=== PATIENT | male | born 1945 | race Caucasian/White ===

== ENCOUNTER 2018-08-03 09:44 | Inpatient (IN) | payer MEDICARE, OTHER ==
[~2018-08-03] VITALS: Ht 172.7 cm; Wt 86.4 kg
[~2018-08-03 09:44] MED LIST: NO HOME MEDS
[2018-08-03] MEDS ORDERED: LORazepam 2 mg/ml vial IV ONE (10:00)
[2018-08-03] MEDS ORDERED: ondansetron/PF 4mg/2ml inj IV ONE (10:00)
[2018-08-03] MEDS ORDERED: morphine 4 MG/ML inj SYRINge IV ONE (10:00)
[2018-08-03 10:22] LABS: MEAN CORPUSCULAR HEMOGLOBIN 32.1 PG (27.0-31.0)
[2018-08-03 10:28] LABS: INR 1.1 INR; PROTHROMBIN TIME 11.1 SECONDS (9.0-12.0)
[2018-08-03 10:33] LABS: ALANINE AMINOTRANSFERASE 36 U/L (12-78); ALBUMIN 4.6 G/DL (3.4-5.0); ALBUMIN/GLOBULIN RATIO 1.3 (1.1-1.5); ALKALINE PHOSPHATASE 100 IU/L (46-116); ANION GAP 17 (8-16); ASPARTATE AMINO TRANSFERASE 41 U/L (10-37); BILIRUBIN,TOTAL 2.3 MG/DL (0.1-1.0); BLOOD UREA NITROGEN 17 MG/DL (7-18); BUN/CREATININE RATIO 16.3 (5.4-32.0); CALCIUM 9.6 MG/DL (8.5-10.1); CHLORIDE 101 MMOL/L (99-107); CREATININE 1.04 MG/DL (0.60-1.10); GLUCOSE 105 MG/DL (70-104); POTASSIUM 4.1 MMOL/L (3.5-5.1); SODIUM 137 MMOL/L (135-145); TOTAL CARBON DIOXIDE 19.4 MMOL/L (24-32); TOTAL PROTEIN 8.1 G/DL (6.4-8.2); eGFR 70 ML/MIN
[2018-08-03 10:44] LABS: BASOPHILS % (AUTO) 0.1 % (0-1); MEAN PLATELET VOLUME 9.4 FL (7.4-10.4)
[2018-08-03 10:45] LABS: HEMATOCRIT 45.9 % (42.0-52.0); HEMOGLOBIN 15.9 g/dl (14.0-17.9); LYMPHOCYTES % (AUTO) 6.2 % (21-51); MEAN CORPUSCULAR HGB CONC 34.5 % (33.0-36.5); NEUTROPHILS % (AUTO) 88.1 % (42-75); RED BLOOD COUNT 4.94 X10'6 (4.70-6.10); WHITE BLOOD COUNT 15.9 X10'3 (4.5-11.0)
[2018-08-03 10:46] LABS: EOSINOPHILS % (AUTO) 0 % (0-6); MONOCYTES # (AUTO) 0.9 X10'3 (0-0.9); MONOCYTES % (AUTO) 5.6 % (2-12)
[2018-08-03 10:47] LABS: RED CELL DISTRIBUTION WIDTH 13.3 % (11.5-14.5)
[2018-08-03] MEDS ORDERED: HYDROmorphone 1 mg/ml syringe IV ONE (10:50)
[2018-08-03 10:51] LABS: PLATELET COUNT 138 X10'3 (140-440)
[2018-08-03] MEDS: normal saline 1000ml 1,000 ML IV SCH ×4 (11:09→23:11)
[2018-08-03] MEDS ORDERED: HYDROmorphone inj. 0.5 MG/0.5 ML DISP.SYRIN IV PRN ×2 (11:20)
[2018-08-03] MEDS ORDERED: ondansetron/PF 4mg/2ml inj IV PRN (11:20)
[2018-08-03] MEDS ORDERED: magnesium 1gm/100ml D5W IVPB 100 ML IV PRN (11:20)
[2018-08-03] MEDS ORDERED: magnesium Cl slow-release 64mg tablet PO PRN (11:20)
[2018-08-03] MEDS ORDERED: metoclopramide 5 mg/ml inj IV PRN (11:20)
[2018-08-03] MEDS ORDERED: potassium Cl 20 mEq SR tablet PO PRN ×2 (11:20)
[2018-08-03] MEDS ORDERED: acetaminophen 325mg tablet PO PRN (11:20)
[2018-08-03] MEDS ORDERED: potassium Cl 40MEQ/NS 500ml 500 ML IV PRN ×2 (11:20)
[2018-08-03] MEDS ORDERED: magnesium 4gm in 100ml NS 100 ML IV PRN (11:20)
[2018-08-03] MEDS ORDERED: ATOR20TA PO (12:13)
[2018-08-03] MEDS ORDERED: CYAN100087 PO (12:14)
[2018-08-03 13:56] LABS: CLARITY,URINE CLEAR (Clear); COLOR,URINE YELLOW (Yellow); GLUCOSE, URINE NEGATIVE (Neg); KETONES,URINE 40 mg/dl (Neg); LEUKOCYTE ESTERASE ,URINE NEGATIVE (Neg); NITRITES, URINE NEGATIVE (Neg); OCCULT BLOOD,URINE MODERATE (Neg); PH,URINE 5.5 (4.8-8.0); PROTEIN,URINE NEGATIVE (Neg); UROBILINOGEN,URINE 0.2 E.U/dL (0.2-1.0)
[2018-08-03 13:57] LABS: UA COLLECTION TYPE CLN CATCH MIDSTREAM
[2018-08-03 14:05] LABS: BACTERIA,URINE NONE SEEN /HPF (Neg); RBC,URINE 0-2 /HPF (0-2); SQUAMOUS EPITHELIAL CELL,UR NONE SEEN /LPF (FEW); WBC,URINE 0-4 /HPF (0-4)
[2018-08-03 16:02] VITALS: BP 120/73
[2018-08-03] MEDS ORDERED: HYDROmorphone 1 mg/ml syringe ONE ×2 (16:10→20:02)
[2018-08-03] MEDS: famotidine 20mg tablet PO SCH (20:03)
[2018-08-03] MEDS: docusate sod 100mg capsule PO SCH (20:03)
[2018-08-03] MEDS ORDERED: HYDROmorphone 1 mg/ml syringe IV PRN (20:10)
[2018-08-03] MEDS: HYDROmorphone 1 mg/ml syringe IV PRN (20:16)
[2018-08-03 22:00] VITALS: BP 121/73
[2018-08-04] VITALS (18 sets, daily range): BP systolic 114–153; BP diastolic 67–96
[2018-08-04] MEDS: HYDROmorphone 1 mg/ml syringe IV PRN ×5 (00:22→20:21)
[2018-08-04 06:15] LABS: ALBUMIN 3.3 G/DL (3.4-5.0); ANION GAP 6 (8-16); BLOOD UREA NITROGEN 16 MG/DL (7-18); BUN/CREATININE RATIO 17.8 (5.4-32.0); CALCIUM 8.3 MG/DL (8.5-10.1); CHLORIDE 104 MMOL/L (99-107); GLUCOSE 115 MG/DL (70-104); MAGNESIUM 1.9 MG/DL (1.5-2.4); POTASSIUM 3.7 MMOL/L (3.5-5.1); SODIUM 135 MMOL/L (135-145); TOTAL CARBON DIOXIDE 24.8 MMOL/L (24-32); eGFR 83 ML/MIN
[2018-08-04 06:39] LABS: BASOPHILS % (AUTO) 0.3 % (0-1); EOSINOPHILS # (AUTO) 0.1 X10'3 (0-0.9); EOSINOPHILS % (AUTO) 0.8 % (0-6); HEMATOCRIT 37.8 % (42.0-52.0); HEMOGLOBIN 13.4 g/dl (14.0-17.9); LYMPHOCYTES # (AUTO) 1.7 X10'3 (1.1-4.8); LYMPHOCYTES % (AUTO) 14.5 % (21-51); MEAN CORPUSCULAR HEMOGLOBIN 33.4 PG (27.0-31.0); MEAN CORPUSCULAR HGB CONC 35.4 % (33.0-36.5); MEAN CORPUSCULAR VOLUME 94.3 FL (78-98); MEAN PLATELET VOLUME 9.9 FL (7.4-10.4); MONOCYTES % (AUTO) 8.7 % (2-12); NEUTROPHILS # (AUTO) 8.8 X10'3 (1.8-7.7); NEUTROPHILS % (AUTO) 75.7 % (42-75); RED BLOOD COUNT 4.01 X10'6 (4.70-6.10); RED CELL DISTRIBUTION WIDTH 12.5 % (11.5-14.5); WHITE BLOOD COUNT 11.6 X10'3 (4.5-11.0)
[2018-08-04] MEDS: K and/or MAG REPLACEMENT MC SCH (07:00)
[2018-08-04 07:10] LABS: PLATELET COUNT 122 X10'3 (140-440); PLATELET ESTIMATE DECREASED
[2018-08-04] MEDS: docusate sod 100mg capsule PO SCH ×2 (07:18→20:00)
[2018-08-04] MEDS ORDERED: ceFAZolin 1GM/D5W- ADD-VANTAGE 50 ML IV ONE (07:30)
[2018-08-04] MEDS ORDERED: fentaNYL/PF 50MCG/1 ML 2ML syringe ONE (17:02)
[2018-08-04] MEDS ORDERED: midazolam 2 mg/2 ml injection ONE (17:03)
[2018-08-04] MEDS ORDERED: BUPIVAcaine/PF 7.5mg/ml (0.75%) 10ml vial ONE (17:04)
[2018-08-04] MEDS ORDERED: propofol inj 20 ML IV ONE (18:00)
[2018-08-04] MEDS ORDERED: LIDOcaine 1%/PF 5ML 10 MG/ML VIAL ONE (18:00)
[2018-08-04] MEDS ORDERED: diphenhydrAMINE 50 mg/ml inj ONE (18:00)
[2018-08-04] MEDS ORDERED: normal saline 1000ml 1,000 ML IV ONE (18:03)
[2018-08-04] MEDS ORDERED: ondansetron/PF 4mg/2ml inj IV PRN (18:05)
[2018-08-04] MEDS ORDERED: HYDROmorphone 1 mg/ml syringe IV PRN (18:05)
[2018-08-04] MEDS ORDERED: morphine 4 MG/ML inj SYRINge IV PRN (18:05)
[2018-08-04] MEDS ORDERED: acetaminophen 325mg tablet PO PRN (18:50)
[2018-08-04] MEDS ORDERED: diphenhydrAMINE 25mg capsule PO PRN ×2 (18:50)
[2018-08-04] MEDS ORDERED: bisacodyl 10mg suppository rectal RC PRN (18:50)
[2018-08-04] MEDS ORDERED: magnesium hydroxide 30ml (MOM) UD suspension PO PRN (18:50)
[2018-08-04] MEDS: famotidine 20mg tablet PO SCH (20:16)
[2018-08-04] MEDS: sennosides 8.6mg tablet PO SCH (20:20)
[2018-08-04] MEDS: HYDROcodone/acetaminophen 10/325mg tab PO PRN (21:44)
[2018-08-05] MEDS: HYDROmorphone 1 mg/ml syringe IV PRN (00:29)
[2018-08-05] MEDS: ceFAZolin 1GM/D5W- ADD-VANTAGE 50 ML IV SCH ×2 (00:29→08:21)
[2018-08-05 02:00] VITALS: BP 146/82
[2018-08-05] MEDS: HYDROcodone/acetaminophen 10/325mg tab PO PRN ×5 (02:20→21:01)
[2018-08-05 05:00] VITALS: BP 126/81
[2018-08-05 05:56] LABS: ANION GAP 7 (8-16); CHLORIDE 105 MMOL/L (99-107); CHOL/HDL RATIO 2.3 (0.00-4.99); CHOLESTEROL 103 MG/DL (0-200); CREATININE 0.78 MG/DL (0.60-1.10); GLUCOSE 105 MG/DL (70-104); HDL CHOLESTEROL 45 MG/DL (35-60); LDL CHOLESTEROL 52 MG/DL (50-100); MAGNESIUM 1.9 MG/DL (1.5-2.4); POTASSIUM 3.8 MMOL/L (3.5-5.1); SODIUM 136 MMOL/L (135-145); TOTAL CARBON DIOXIDE 24.2 MMOL/L (24-32); TRIGLYCERIDES 69 MG/DL (20-135); eGFR > 90 ML/MIN
[2018-08-05 06:19] LABS: BLOOD UREA NITROGEN 10 MG/DL (7-18); BUN/CREATININE RATIO 12.8 (5.4-32.0)
[2018-08-05 06:35] LABS: BASOPHILS % (AUTO) 0.2 % (0-1); EOSINOPHILS # (AUTO) 0.2 X10'3 (0-0.9); EOSINOPHILS % (AUTO) 1.7 % (0-6); HEMATOCRIT 35.7 % (42.0-52.0); HEMOGLOBIN 12.4 g/dl (14.0-17.9); LYMPHOCYTES # (AUTO) 1.3 X10'3 (1.1-4.8); MEAN CORPUSCULAR HEMOGLOBIN 32.4 PG (27.0-31.0); MEAN CORPUSCULAR HGB CONC 34.7 % (33.0-36.5); MEAN CORPUSCULAR VOLUME 93.6 FL (78-98); MEAN PLATELET VOLUME 8.5 FL (7.4-10.4); MONOCYTES # (AUTO) 1.1 X10'3 (0-0.9); MONOCYTES % (AUTO) 10.6 % (2-12); NEUTROPHILS # (AUTO) 7.6 X10'3 (1.8-7.7); NEUTROPHILS % (AUTO) 74.5 % (42-75); PLATELET COUNT 127 X10'3 (140-440); RED BLOOD COUNT 3.82 X10'6 (4.70-6.10); RED CELL DISTRIBUTION WIDTH 13.1 % (11.5-14.5); WHITE BLOOD COUNT 10.2 X10'3 (4.5-11.0)
[2018-08-05] MEDS: K and/or MAG REPLACEMENT MC SCH (08:00)
[2018-08-05] MEDS: docusate sod 100mg capsule PO SCH ×2 (08:21→20:18)
[2018-08-05] MEDS: atorvastatin 20mg tablet PO SCH (08:21)
[2018-08-05] MEDS: cyanocobalamin 500mcg tablet PO SCH (08:21)
[2018-08-05] MEDS: enoxaparin 40mg/0.4ml syringe SQ SCH (08:22)
[2018-08-05] MEDS: normal saline 1000ml 1,000 ML IV SCH (08:31)
[2018-08-05 12:00] VITALS: BP 125/77
[2018-08-05 18:00] VITALS: BP 149/86
[2018-08-05] MEDS: sennosides 8.6mg tablet PO SCH (20:18)
[2018-08-05] MEDS: famotidine 20mg tablet PO SCH (20:18)
[2018-08-05 22:00] VITALS: BP 137/70
[2018-08-06 02:00] VITALS: BP 135/88
[2018-08-06] MEDS: HYDROcodone/acetaminophen 10/325mg tab PO PRN ×3 (02:15→18:41)
[2018-08-06 05:14] LABS: ALBUMIN 2.8 G/DL (3.4-5.0); ANION GAP 6 (8-16); BLOOD UREA NITROGEN 8 MG/DL (7-18); CALCIUM 8.1 MG/DL (8.5-10.1); CHLORIDE 103 MMOL/L (99-107); GLUCOSE 111 MG/DL (70-104); MAGNESIUM 1.8 MG/DL (1.5-2.4); POTASSIUM 3.5 MMOL/L (3.5-5.1); SODIUM 136 MMOL/L (135-145); eGFR > 90 ML/MIN
[2018-08-06 05:15] LABS: BASOPHILS % (AUTO) 0.4 % (0-1); EOSINOPHILS # (AUTO) 0.2 X10'3 (0-0.9); EOSINOPHILS % (AUTO) 1.7 % (0-6); HEMOGLOBIN 12.3 g/dl (14.0-17.9); LYMPHOCYTES # (AUTO) 1.2 X10'3 (1.1-4.8); LYMPHOCYTES % (AUTO) 10.9 % (21-51); MEAN CORPUSCULAR HEMOGLOBIN 32.9 PG (27.0-31.0); MEAN CORPUSCULAR HGB CONC 35.2 % (33.0-36.5); MEAN CORPUSCULAR VOLUME 93.7 FL (78-98); MEAN PLATELET VOLUME 9.8 FL (7.4-10.4); MONOCYTES # (AUTO) 1.2 X10'3 (0-0.9); MONOCYTES % (AUTO) 10.9 % (2-12); NEUTROPHILS # (AUTO) 8.1 X10'3 (1.8-7.7); NEUTROPHILS % (AUTO) 76.1 % (42-75); PLATELET COUNT 104 X10'3 (140-440); RED BLOOD COUNT 3.74 X10'6 (4.70-6.10); RED CELL DISTRIBUTION WIDTH 12.7 % (11.5-14.5); WHITE BLOOD COUNT 10.6 X10'3 (4.5-11.0)
[2018-08-06 06:00] VITALS: BP 133/67
[2018-08-06] MEDS: K and/or MAG REPLACEMENT MC SCH (06:35)
[2018-08-06] MEDS: atorvastatin 20mg tablet PO SCH (07:24)
[2018-08-06] MEDS: enoxaparin 40mg/0.4ml syringe SQ SCH (07:25)
[2018-08-06] MEDS: docusate sod 100mg capsule PO SCH ×2 (07:25→19:50)
[2018-08-06] MEDS: cyanocobalamin 500mcg tablet PO SCH (07:25)
[2018-08-06 10:25] VITALS: BP 143/86
[2018-08-06 18:00] VITALS: BP 133/88
[2018-08-06] MEDS: famotidine 20mg tablet PO SCH (19:50)
[2018-08-06] MEDS: sennosides 8.6mg tablet PO SCH (19:51)
[2018-08-06 22:00] VITALS: BP 132/83
[2018-08-07] MEDS: HYDROcodone/acetaminophen 10/325mg tab PO PRN ×3 (01:41→15:05)
[2018-08-07 06:17] LABS: ALBUMIN 2.7 G/DL (3.4-5.0); ANION GAP 7 (8-16); BLOOD UREA NITROGEN 11 MG/DL (7-18); BUN/CREATININE RATIO 13.9 (5.4-32.0); CALCIUM 8.3 MG/DL (8.5-10.1); CHLORIDE 101 MMOL/L (99-107); CREATININE 0.79 MG/DL (0.60-1.10); GLUCOSE 112 MG/DL (70-104); POTASSIUM 3.7 MMOL/L (3.5-5.1); SODIUM 135 MMOL/L (135-145); TOTAL CARBON DIOXIDE 26.9 MMOL/L (24-32); eGFR > 90 ML/MIN
[2018-08-07 07:00] VITALS: BP 108/73
[2018-08-07] MEDS: cyanocobalamin 500mcg tablet PO SCH (07:41)
[2018-08-07] MEDS: enoxaparin 40mg/0.4ml syringe SQ SCH (07:42)
[2018-08-07] MEDS: atorvastatin 20mg tablet PO SCH (07:42)
[2018-08-07 07:45] LABS: BASOPHILS % (AUTO) 0.3 % (0-1); EOSINOPHILS # (AUTO) 0.3 X10'3 (0-0.9); EOSINOPHILS % (AUTO) 2.9 % (0-6); HEMOGLOBIN 12.3 g/dl (14.0-17.9); LYMPHOCYTES # (AUTO) 1.4 X10'3 (1.1-4.8); LYMPHOCYTES % (AUTO) 13.8 % (21-51); MEAN CORPUSCULAR HEMOGLOBIN 32.5 PG (27.0-31.0); MEAN CORPUSCULAR HGB CONC 35.1 % (33.0-36.5); MEAN CORPUSCULAR VOLUME 92.7 FL (78-98); MEAN PLATELET VOLUME 9.1 FL (7.4-10.4); MONOCYTES # (AUTO) 1.1 X10'3 (0-0.9); MONOCYTES % (AUTO) 10.4 % (2-12); NEUTROPHILS # (AUTO) 7.4 X10'3 (1.8-7.7); NEUTROPHILS % (AUTO) 72.6 % (42-75); PLATELET COUNT 158 X10'3 (140-440); RED BLOOD COUNT 3.77 X10'6 (4.70-6.10); RED CELL DISTRIBUTION WIDTH 12.7 % (11.5-14.5); WHITE BLOOD COUNT 10.1 X10'3 (4.5-11.0)
[2018-08-07] MEDS: docusate sod 100mg capsule PO SCH (07:58)
[2018-08-07] MEDS: K and/or MAG REPLACEMENT MC SCH (07:58)
[2018-08-07 10:20] VITALS: BP 106/69
[2018-08-07] MEDS ORDERED: ENOX40DI11 SQ (10:44)
[2018-08-07] MEDS: normal saline 1000ml 1,000 ML IV SCH (11:19)
== END 2018-08-07 16:24 | DRG 470 ==
LOC: ER 09:46 → ED HOLD 11:19 → EDBEDREQ 14:38 → ORTHO 4S 16:00
PROVIDERS: ADMIT Internal Medicine; ATTEND Family Medicine
PROC: 0SRR0J9 Replacement of Right Hip Joint, Femoral Surface with Synthetic Substitute, Cemented, Open Approach (ICD-10-PCS; principal; 2018-08-04 17:02)
DX: S72.001A Fracture of unspecified part of neck of right femur, initial encounter for closed fracture (principal); D72.829 Elevated white blood cell count, unspecified; E78.5 Hyperlipidemia, unspecified; F17.290 Nicotine dependence, other tobacco product, uncomplicated; E78.00 Pure hypercholesterolemia, unspecified; D64.9 Anemia, unspecified; W01.0XXA Fall on same level from slipping, tripping and stumbling without subsequent striking against object, initial encounter; Y93.01 Activity, walking, marching and hiking; Z90.49 Acquired absence of other specified parts of digestive tract; Z98.41 Cataract extraction status, right eye; Z98.42 Cataract extraction status, left eye; Z79.899 Other long term (current) drug therapy; Z88.6 Allergy status to analgesic agent; Y92.89 Other specified places as the place of occurrence of the external cause; Y99.8 Other external cause status
CPT/HCPCS: 36415; 71045; 73502; 80048; 80053; 80061; 81001; 83735; 85025; 85610; 86885; 86900; 86901; 87070; 93005; 96374; 96375; 97110; 97116; 97162; 97530; 99285; A6258; A6449; J0690; J1170; J1200; J1650; J2001; J2250; J2704; J3010; J3370; J3490; J7030

== ENCOUNTER 2021-09-03 11:38 | Day surgery (SDC) | payer MEDICARE, OTHER ==
[2021-08-30 11:23] LABS: PARTIAL THROMBOPLASTIN TIME 43 SECONDS (22-32)
[2021-08-30 11:27] LABS: ANION GAP 9 (8-16); BLOOD UREA NITROGEN 16 MG/DL (7-18); BUN/CREATININE RATIO 15.8 (5.4-32.0); CALCIUM 9.1 MG/DL (8.5-10.1); CHLORIDE 107 MMOL/L (99-107); CREATININE 1.01 MG/DL (0.60-1.10); GLUCOSE 100 MG/DL (70-104); POTASSIUM 4.7 MMOL/L (3.5-5.1); SODIUM 143 MMOL/L (135-145); TOTAL CARBON DIOXIDE 26.6 MMOL/L (24-32); eGFR 72 ML/MIN
[2021-09-03] VITALS (9 sets, daily range): BP systolic 105–136; BP diastolic 59–98
[~2021-09-03] VITALS: Ht 172.7 cm; Wt 83.7 kg
[~2021-09-03 11:38] MED LIST changes: +ATOR20TA PO; +CYAN100087 PO; +ENOX40DI11 SQ; -NO HOME MEDS
[2021-09-03] MEDS ORDERED: SOTA80TA73 PO (12:04)
[2021-09-03] MEDS ORDERED: RIVA20TA PO (12:04)
[2021-09-03] MEDS ORDERED: FLONASE (12:05)
[2021-09-03] MEDS ORDERED: ZYRTEC (12:05)
[2021-09-03] MEDS ORDERED: MIDAZolam 1mg/ml 10ml vial IV ONE (12:10)
[2021-09-03] MEDS ORDERED: fentaNYL/PF 50MCG/1 ML 2ML syringe IV ONE (12:10)
[2021-09-03] MEDS ORDERED: normal saline 1000ml 1,000 ML IV SCH (12:10)
[2021-09-03 12:29] LABS: BASOPHILS # (AUTO) 0.1 X10'3 (0-0.2); EOSINOPHILS # (AUTO) 0.3 X10'3 (0-0.9); EOSINOPHILS % (AUTO) 2.9 % (0-6); HEMATOCRIT 43.6 % (42.0-52.0); HEMOGLOBIN 14.6 g/dl (14.0-17.9); LYMPHOCYTES # (AUTO) 2.2 X10'3 (1.1-4.8); LYMPHOCYTES % (AUTO) 21.9 % (21-51); MEAN CORPUSCULAR HEMOGLOBIN 31.9 PG (27.0-31.0); MEAN CORPUSCULAR HGB CONC 33.4 g/dL (33.0-36.5); MEAN CORPUSCULAR VOLUME 95.5 FL (78-98); MEAN PLATELET VOLUME 9.8 FL (7.4-10.4); MONOCYTES # (AUTO) 0.8 X10'3 (0-0.9); MONOCYTES % (AUTO) 7.9 % (2-12); NEUTROPHILS # (AUTO) 6.7 X10'3 (1.8-7.7); NEUTROPHILS % (AUTO) 66.3 % (42-75); PLATELET COUNT 174 X10'3 (140-440); RED BLOOD COUNT 4.56 X10'6 (4.70-6.10); RED CELL DISTRIBUTION WIDTH 13.4 % (11.5-14.5); WHITE BLOOD COUNT 10.1 X10'3 (4.5-11.0)
== END 2021-09-03 14:50 | disposition home or self-care (01) ==
LOC: SSTAY O 11:38
PROVIDERS: ATTEND Internal Medicine Interventional Cardiology
DX: I48.91 Unspecified atrial fibrillation (principal); Z88.6 Allergy status to analgesic agent; Z79.899 Other long term (current) drug therapy; Z98.890 Other specified postprocedural states; Z79.01 Long term (current) use of anticoagulants
CPT/HCPCS: 36415; 80048; 85025; 85610; 85730; 92960; 93005; 94799; J2250; J3010; J7030

== ENCOUNTER 2024-09-01 07:53 | Inpatient (IN) | payer MEDICARE, OTHER ==
[2024-08-25 11:00] LABS: BILIRUBIN,URINE NEGATIVE (Neg); CLARITY,URINE CLEAR (Clear); COLOR,URINE YELLOW (Yellow); GLUCOSE, URINE NEGATIVE (Neg); KETONES,URINE NEGATIVE (Neg); LEUKOCYTE ESTERASE ,URINE NEGATIVE (Neg); NITRITES, URINE NEGATIVE (Neg); OCCULT BLOOD,URINE SMALL (Neg); PROTEIN,URINE NEGATIVE (Neg); UROBILINOGEN,URINE 0.2 E.U/dL (0.2-1.0)
[2024-08-25 11:06] LABS: UA COLLECTION TYPE CLN CATCH MIDSTREAM
[2024-08-25 11:07] LABS: BACTERIA,URINE NONE SEEN /HPF (Neg); RBC,URINE 0-2 /HPF (0-2); SQUAMOUS EPITHELIAL CELL,UR NONE SEEN /LPF (FEW); WBC,URINE NONE SEEN /HPF (0-4)
[2024-08-25 11:14] LABS: PRE OP INR 1.3 INR; PRE OP PROTIME 13.6 SECONDS (9.0-12.0)
[2024-08-25 11:17] LABS: ALBUMIN/GLOBULIN RATIO 1.2 (1.1-1.5); ALKALINE PHOSPHATASE 87 IU/L (46-116); BLOOD UREA NITROGEN 21 MG/DL (7-18); BUN/CREATININE RATIO 20.2 (10.0-20.0); CHLORIDE 106 MMOL/L (99-107); CREATININE 1.04 MG/DL (0.60-1.10); PRE OP ALT 19 U/L (30-65); PRE OP ANION GAP 7 (8-16); PRE OP AST 13 U/L (10-37); PRE OP BILIRUB, TOTAL 0.7 MG/DL (0.0-1.0); PRE OP GLUCOSE 95 MG/DL (70-104); PRE OP POTASSIUM 4.1 MMOL/L (3.4-5.1); PRE OP SODIUM 140 MMOL/L (135-145); TOTAL CARBON DIOXIDE 27.4 MMOL/L (24-32); TOTAL PROTEIN 7.3 G/DL (6.4-8.2); eGFR 69 ML/MIN
[2024-08-25 12:28] LABS: BASOPHILS % (AUTO) 0.6 % (0-1); EOSINOPHILS # (AUTO) 0.1 X10'3 (0-0.9); RED CELL DISTRIBUTION WIDTH 13.4 % (11.5-14.5)
[2024-08-25 12:30] LABS: EOSINOPHILS % (AUTO) 1.5 % (0-6); LYMPHOCYTES % (AUTO) 23.7 % (21-51); MEAN CORPUSCULAR HGB CONC 33.4 g/dL (33.0-36.5); MEAN CORPUSCULAR VOLUME 95.9 FL (78-98); MEAN PLATELET VOLUME 10.1 FL (7.4-10.4); MONOCYTES # (AUTO) 0.7 X10'3 (0-0.9); MONOCYTES % (AUTO) 7.9 % (2-12); NEUTROPHILS # (AUTO) 5.5 X10'3 (1.8-7.7); NEUTROPHILS % (AUTO) 66.3 % (42-75); PRE OP HEMATOCRIT 40.8 % (42.0-52.0); PRE OP HEMOGLOBIN 13.6 g/dL (14.0-17.9); PRE OP WHITE BLOOD COUNT 8.3 10'3 (4.8-10.8); RED BLOOD COUNT 4.25 X10'6 (4.70-6.10)
[2024-09-01] VITALS (39 sets, daily range): BP systolic 122–158; BP diastolic 62–95; PULSE 54–89; RESP 12–24; TEMP 97.4–98; O2SAT 93–100
[~2024-09-01] VITALS: Ht 170.2 cm; Wt 84.1 kg
[2024-09-01] MEDS: cefazolin 2gm/D5W 100mL 100 ML IV ONE (05:30)
[~2024-09-01 07:53] MED LIST changes: +AMLO-379 PO; +CETI-91 PO; -CYAN100087 PO; -ENOX40DI11 SQ; +FLEC50TA28 PO; +MULT-1085 PO; +RIVA20TA PO; +ondansetron/PF 4mg/2ml inj IV PRN
[2024-09-01] MEDS ORDERED: labetalol 20mg/4ml (5mg/ml) syringe IV PRN ×2 (08:25→10:50)
[2024-09-01] MEDS ORDERED: morphine 4 MG/ML inj SYRINge IV PRN (08:25)
[2024-09-01] MEDS ORDERED: hydrALAZINE 20mg/ml inj. IV PRN ×2 (08:25→10:50)
[2024-09-01] MEDS ORDERED: ondansetron/PF 4mg/2ml inj IV PRN ×2 (08:25→10:50)
[2024-09-01] MEDS: ringers solution, lacted 1,000 ML IV SCH ×2 (08:25→08:26)
[2024-09-01] MEDS: acetaminophen 1,000mg/100ml IV 100 ML IV ONE (08:25)
[2024-09-01] MEDS ORDERED: morphine 2 MG/ML inj. syringe IV PRN (08:25)
[2024-09-01] MEDS ORDERED: proCHLORperazine 10 MG/2 ml inj IV PRN ×2 (08:25→10:50)
[2024-09-01] MEDS ORDERED: meperidine/PF 25mg/ml syringe IV PRN ×3 (08:25)
[2024-09-01] MEDS: famotidine 20mg tablet PO ONE (08:26)
[2024-09-01] MEDS: vancomycin 1,500 MG in NS 300ml IV soln IV ONE (08:26)
[2024-09-01 08:51] LABS: BASOPHILS # (AUTO) 0.1 X10'3 (0-0.2); BASOPHILS % (AUTO) 0.7 % (0-1); EOSINOPHILS # (AUTO) 0.1 X10'3 (0-0.9); EOSINOPHILS % (AUTO) 1.4 % (0-6); HEMATOCRIT 40.5 % (42.0-52.0); HEMOGLOBIN 13.5 g/dl (14.0-17.9); LYMPHOCYTES # (AUTO) 1.7 X10'3 (1.1-4.8); LYMPHOCYTES % (AUTO) 22.9 % (21-51); MEAN CORPUSCULAR HEMOGLOBIN 32.5 PG (27.0-31.0); MEAN CORPUSCULAR HGB CONC 33.4 g/dL (33.0-36.5); MEAN CORPUSCULAR VOLUME 97.2 FL (78-98); MEAN PLATELET VOLUME 9.6 FL (7.4-10.4); MONOCYTES # (AUTO) 0.6 X10'3 (0-0.9); MONOCYTES % (AUTO) 8.5 % (2-12); NEUTROPHILS % (AUTO) 66.5 % (42-75); RED BLOOD COUNT 4.17 X10'6 (4.70-6.10); RED CELL DISTRIBUTION WIDTH 13.2 % (11.5-14.5)
[2024-09-01 08:55] LABS: PLATELET COUNT 144 X10'3 (140-440)
[2024-09-01] MEDS ORDERED: LIDOcaine 1% (10mg/ml) 2ml vial ONE (09:39)
[2024-09-01] MEDS ORDERED: LIDOcaine 1% 30ml preserv. free vial ONE (09:51)
[2024-09-01] MEDS ORDERED: iohexol 350 MG/ML 50ML vial IV ONE ×2 (09:51)
[2024-09-01] MEDS ORDERED: sevoflurane 250ml liquid IH ONE (09:54)
[2024-09-01] MEDS ORDERED: fentaNYL/PF 50MCG/1 ML 2ML syringe ONE (09:56)
[2024-09-01] MEDS ORDERED: midazolam 1 mg/ML 2ml injection ONE (09:56)
[2024-09-01] MEDS ORDERED: LIDOcaine 1%/PF 5ML 10 MG/ML VIAL ONE (10:04)
[2024-09-01] MEDS ORDERED: propofol inj 20 ML IV ONE (10:04)
[2024-09-01] MEDS ORDERED: dexamethasone sod phosphate 4mg/ml inj. ONE ×2 (10:05→10:08)
[2024-09-01] MEDS ORDERED: ondansetron/PF 4mg/2ml inj ONE ×2 (10:05→10:08)
[2024-09-01] MEDS ORDERED: pantoprazole 40mg Tablet.DR PO PRN (10:50)
[2024-09-01] MEDS ORDERED: ALPRAZolam 0.25mg tablet PO PRN (10:50)
[2024-09-01] MEDS ORDERED: magnesium sulf-water 2g/50mL 50 ML IV PRN (10:50)
[2024-09-01] MEDS ORDERED: potassium Cl 40MEQ/270ML bag 250 ML IV PRN (10:50)
[2024-09-01] MEDS ORDERED: potassium Cl 20mEq/100mL bag 100 ML IV PRN (10:50)
[2024-09-01] MEDS ORDERED: docusate sod 100mg capsule PO PRN (10:50)
[2024-09-01] MEDS ORDERED: potassium CL 10mEq/100ml bag 100 ML IV PRN (10:50)
[2024-09-01] MEDS ORDERED: acetaminophen 325mg tablet PO PRN (10:50)
[2024-09-01] MEDS ORDERED: magnesium sulf-water 4G/100mL 100 ML IV PRN (10:50)
[2024-09-01] MEDS ORDERED: diphenhydrAMINE 25mg capsule PO PRN (10:50)
[2024-09-01] MEDS ORDERED: HYDROcodone/acetaminophen 5mg/325mg tablet PO PRN (10:50)
[2024-09-01] MEDS ORDERED: potassium Cl 40MEQ/1/2NS 520ml 520 ML IV PRN (10:50)
[2024-09-01] MEDS: HALLS - SOOTHE MENTHOL 1.8 MG cough drop LOZENGE MM PRN (13:20)
[2024-09-01] MEDS: sod chloride 0.9% 10ml flush syringe IV SCH (16:00)
[2024-09-01] MEDS: ceFAZolin 1GM/D5W- ADD-VANTAGE 50 ML IV SCH (17:47)
[2024-09-01] MEDS: normal saline 1000ml 1,000 ML IV SCH (17:47)
[2024-09-01] MEDS: flecainide 50mg tablet PO SCH (20:00)
[2024-09-01] MEDS: rivaroxaban 20mg tablet PO SCH (21:00)
[2024-09-01] MEDS: vancomycin/NS 1 GM ADD-VANTAGE 250 ML IV SCH (22:12)
[2024-09-02] VITALS: BP 138/76
[2024-09-02 02:00] VITALS: BP 112/65; PULSE 67; RESP 20; TEMP 97.9; O2SAT 96
[2024-09-02] MEDS: potassium Cl 20 mEq SR tablet PO PRN (02:39)
[2024-09-02 06:00] VITALS: BP 135/83; PULSE 65; RESP 20; TEMP 98.1; O2SAT 96
[2024-09-02 06:47] LABS: INR 1.6 INR; PROTHROMBIN TIME 16.2 SECONDS (9.0-12.0)
[2024-09-02 06:57] LABS: ALANINE AMINOTRANSFERASE 18 U/L (12-78); ALBUMIN 3.5 G/DL (3.4-5.0); ALBUMIN/GLOBULIN RATIO 1.2 (1.1-1.5); ALKALINE PHOSPHATASE 83 IU/L (46-116); ANION GAP 7 (8-16); ASPARTATE AMINO TRANSFERASE 15 U/L (10-37); BILIRUBIN,TOTAL 0.6 MG/DL (0.1-1.0); BLOOD UREA NITROGEN 15 MG/DL (7-18); BUN/CREATININE RATIO 15.2 (10.0-20.0); CALCIUM 8.8 MG/DL (8.5-10.1); CHLORIDE 109 MMOL/L (99-107); CREATININE 0.99 MG/DL (0.60-1.10); GLUCOSE 128 MG/DL (70-104); MAGNESIUM 2.1 MG/DL (1.5-2.4); POTASSIUM 4.2 MMOL/L (3.5-5.1); PRO BRAIN NATRIURETIC PEPTIDE 638 PG/ML (0-450); SODIUM 142 MMOL/L (135-145); TOTAL CARBON DIOXIDE 25.7 MMOL/L (24-32); TOTAL PROTEIN 6.5 G/DL (6.4-8.2); eCRCL 57 ML/MIN; eGFR 73 ML/MIN
[2024-09-02] MEDS: losartan 50mg tablet PO SCH (07:30)
[2024-09-02] MEDS: atorvastatin 20mg tablet PO SCH (07:30)
[2024-09-02] MEDS: amLODIPine 5mg tablet PO SCH (07:30)
[2024-09-02] MEDS: cetirizine 10mg tablet PO SCH (07:31)
[2024-09-02] MEDS: multivitamins, therapeutics tablet PO SCH (07:31)
[2024-09-02 08:53] LABS: BASOPHILS # (AUTO) 0.1 X10'3 (0-0.2); BASOPHILS % (AUTO) 0.3 % (0-1); EOSINOPHILS % (AUTO) 0 % (0-6); HEMATOCRIT 39.6 % (42.0-52.0); MONOCYTES # (AUTO) 1.2 X10'3 (0-0.9); MONOCYTES % (AUTO) 4.9 % (2-12)
[2024-09-02 08:54] LABS: LYMPHOCYTES # (AUTO) 1.2 X10'3 (1.1-4.8); LYMPHOCYTES % (AUTO) 4.8 % (21-51); MEAN CORPUSCULAR HEMOGLOBIN 31.4 PG (27.0-31.0); MEAN CORPUSCULAR HGB CONC 32.8 g/dL (33.0-36.5); MEAN CORPUSCULAR VOLUME 95.8 FL (78-98); MEAN PLATELET VOLUME 9.6 FL (7.4-10.4); RED BLOOD COUNT 4.14 X10'6 (4.70-6.10); RED CELL DISTRIBUTION WIDTH 12.9 % (11.5-14.5); WHITE BLOOD COUNT 24.4 X10'3 (4.5-11.0)
[2024-09-02 08:57] LABS: PLATELET COUNT 160 X10'3 (140-440)
[2024-09-02 11:00] VITALS: BP 101/70; PULSE 64; RESP 20; TEMP 97.9; O2SAT 97
== END 2024-09-02 15:13 | disposition home or self-care (01) | DRG 274 ==
LOC: PAS IN 07:53 → EDSTATUS 09:30 → PCU 3S 18:07
PROVIDERS: ADMIT Student in an Organized Health Care Education/Training Program; ATTEND Student in an Organized Health Care Education/Training Program
PROC: 03HY32Z Insertion of Monitoring Device into Upper Artery, Percutaneous Approach (ICD-10-PCS; 2024-09-01)
PROC: B24BZZ4 Ultrasonography of Heart with Aorta, Transesophageal (ICD-10-PCS; 2024-09-01)
PROC: 02L73DK Occlusion of Left Atrial Appendage with Intraluminal Device, Percutaneous Approach (ICD-10-PCS; principal; 2024-09-01 09:54)
DX: I48.0 Paroxysmal atrial fibrillation (principal); Z00.6 Encounter for examination for normal comparison and control in clinical research program; I71.20 Thoracic aortic aneurysm, without rupture, unspecified; E78.5 Hyperlipidemia, unspecified; D72.829 Elevated white blood cell count, unspecified; I10 Essential (primary) hypertension; Z88.8 Allergy status to other drugs, medicaments and biological substances; Z88.5 Allergy status to narcotic agent
CPT/HCPCS: 33340; 36415; 71045; 71046; 76937; 80053; 81001; 82948; 83735; 83880; 84132; 85025; 85347; 85610; 85730; 86885; 86900; 86901; 86920; 87081; 93005; 93308; 93312; 93325; A4615; A4618; A6258; A6449; C1760; C1889; C1893; C1894; G0378; J0690; J1100; J1644; J2250; J2405; J2704; J3010; J3370; J3490; J7030; J7040; J7120; Q9967

== ENCOUNTER 2024-10-18 11:35 | Day surgery (SDC) | payer MEDICARE, OTHER ==
[2024-10-18] VITALS (12 sets, daily range): BP systolic 130–165; BP diastolic 86–108; PULSE 56–70; RESP 13–20; O2SAT 94–99
[~2024-10-18] VITALS: Ht 172.7 cm; Wt 83.4 kg
[~2024-10-18 11:35] MED LIST changes: -ondansetron/PF 4mg/2ml inj IV PRN
[2024-10-18 12:39] LABS: BASOPHILS # (AUTO) 0.1 X10'3 (0-0.2); BASOPHILS % (AUTO) 0.7 % (0-1); EOSINOPHILS # (AUTO) 0.1 X10'3 (0-0.9); EOSINOPHILS % (AUTO) 1.1 % (0-6); HEMATOCRIT 38.8 % (42.0-52.0); HEMOGLOBIN 13.1 g/dl (14.0-17.9); LYMPHOCYTES # (AUTO) 1.8 X10'3 (1.1-4.8); LYMPHOCYTES % (AUTO) 23.9 % (21-51); MEAN CORPUSCULAR HEMOGLOBIN 32.2 PG (27.0-31.0); MEAN CORPUSCULAR HGB CONC 33.7 g/dL (33.0-36.5); MEAN CORPUSCULAR VOLUME 95.7 FL (78-98); MEAN PLATELET VOLUME 8.7 FL (7.4-10.4); MONOCYTES # (AUTO) 0.6 X10'3 (0-0.9); NEUTROPHILS # (AUTO) 4.9 X10'3 (1.8-7.7); NEUTROPHILS % (AUTO) 66.3 % (42-75); PLATELET COUNT 167 X10'3 (140-440); RED BLOOD COUNT 4.05 X10'6 (4.70-6.10); RED CELL DISTRIBUTION WIDTH 12.8 % (11.5-14.5); WHITE BLOOD COUNT 7.4 X10'3 (4.5-11.0)
[2024-10-18 12:53] LABS: APTT 35 SECONDS (22-32); INR 1.3 INR; PROTHROMBIN TIME 13.2 SECONDS (9.0-12.0)
[2024-10-18 13:39] LABS: ALBUMIN 3.7 G/DL (3.4-5.0); BLOOD UREA NITROGEN 18 MG/DL (7-18); BUN/CREATININE RATIO 18.6 (10.0-20.0); CALCIUM 9.1 MG/DL (8.5-10.1); CREATININE 0.97 MG/DL (0.60-1.10); GLUCOSE 93 MG/DL (70-104); POTASSIUM 3.9 MMOL/L (3.5-5.1); SODIUM 142 MMOL/L (135-145); TOTAL CARBON DIOXIDE 23.5 MMOL/L (24-32); eCRCL 60 ML/MIN; eGFR 75 ML/MIN
[2024-10-18 13:40] LABS: ANION GAP 9 (8-16); CHLORIDE 110 MMOL/L (99-107)
[2024-10-18] MEDS: fentaNYL/PF 50MCG/1 ML 2ML syringe IV ONE (13:48)
[2024-10-18] MEDS: MIDAZolam 1mg/ml 10ml vial IV ONE (13:48)
[2024-10-18] MEDS ORDERED: CLOP75TA34 PO (14:33)
[2024-10-18] MEDS ORDERED: ASPI81TA52 PO (14:33)
== END 2024-10-18 15:50 | disposition home or self-care (01) ==
LOC: SSTAY O 11:35 → EDSTATUS 14:30 → SSTAY O 15:50
PROVIDERS: ATTEND Internal Medicine Interventional Cardiology
DX: I48.91 Unspecified atrial fibrillation (principal); I10 Essential (primary) hypertension; E78.5 Hyperlipidemia, unspecified
CPT/HCPCS: 36415; 80048; 85025; 85610; 85730; 93314; 93325; 94760; J2250; J3010; J7030; 93312; A4620